=== PATIENT | male | born 2000 | race Caucasian/White ===

== ENCOUNTER 2022-09-26 12:00 | Emergency (ER) | payer BC, SELFPAY ==
--- NOTE | ~2022-09-26 | XR_ITS ---
EXAMINATION: XR NASAL BONES CLINICAL INFORMATION: Nasal bridge pain COMPARISON: None available. TECHNIQUE: 3 views of the nasal bones were obtained. FINDINGS: There are no fractures . 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 No bone or soft tissue abnormality is demonstrated. Paranasal sinuses are well aerated without air-fluid levels. A small retention cyst may be present at the base of the left maxillary antrum. XR/XR nasal bones min 3V IMPRESSION: No evidence of an acute fracture. 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
[2022-09-26 12:05] VITALS: BP 108/50; PULSE 66; RESP 18; TEMP 36.7; O2SAT 99; BMI 17.0
--- NOTE | 2022-09-26 12:11 | ED.GENADULT ---
HPI - General Adult General Chief complaint: General Medical Stated complaint: Nose Injury 09/26/22 Time Seen by Provider: 09/26/22 12:20 Source: patient and RN notes reviewed Mode of arrival: ambulatory Limitations: no limitations History of Present Illness HPI narrative: This is a 22-year-old male presenting to the emergency department with for evaluation of nose pain since today. Patient states that he had a wooden door hit him in the face approximately 20 minutes ago. He states that he immediately had a nosebleed which lasted for several minutes and resolved on its own. Patient denies loss of consciousness. No headache or visual changes. Patient states that he has fractured his nose in the past. He is able to breathe out of his nose No other complaints or concerns at this time. MD complaint: Nose pain Onset (ago): minute(s) Radiation: non-radiation Severity: mild Quality: aching Pain Consistency: constant Relieving factors: none Exacerbating factors: none Associated symptoms: denies other symptoms Treatments prior to arrival: none Related Data Allergies Allergy/AdvReac Type Severity Reaction Status Date / Time No Known Allergies Allergy Verified 09/26/22 12:13 Review of Systems Review of Systems: Constitutional: No Weight loss, No Fever, No Chills ENT/Mouth: No Ear Pain, No Nasal Congestion, No Sinus Pain, No Hoarseness, No sore throat, No Rhinorrhea, No Swallowing Difficulty Cardiovascular: No Chest Pain, No SOB Respiratory: No Cough, No Sputum, No Wheezing Gastrointestinal: No Nausea, No Vomiting, No Diarrhea, No Constipation, No Abdominal pain Genitourinary: No Dysuria, No Urinary Frequency, No Hematuria, No Urinary Incontinence/retention, No Urgency, No Flank Pain Musculoskeletal: No joint pain, No Myalgias, No Joint Swelling Skin: No Skin Lesions, No rash Neuro: No Weakness, No Numbness, No Paresthesias Yes all other systems are reviewed and are negative Constitutional: Constitutional: Reports as per [facility] Social History Social History Alcohol intake: never Smoked in Last 30 Days: No Use of substances other than those prescribed or required for medical reasons: No Advance Directives: No Advance Directives Information Provided: Yes Physical Exam ED Vital Signs: Vital Signs - 24 hr 09/26/22 12:05 Temperature 98.1 F Pulse Rate 66 Respiratory Rate 18 Blood Pressure 108/50 L Pulse Oximetry 99 Oxygen Delivery Method Room Air Nasal Cannula BMI result Body Mass Index 17.0 Const General: cooperative, comfortable and no acute distress Orientation/consciousness: patient oriented x3 Limitations: no limitations HENMT Other: obvious deformity to nasal bridge. TTP over the anterior surface of the bridge of the nose, no open wounds, abrasions or lacerations. No ecchymosis. Nasal turbinates without any hematoma noted, scant dry blood noted in bilateral nares. Head: Yes normal to inspection, Yes normocephalic and Yes atraumatic Ears: hearing grossly normal bilaterally Face and sinus: Yes normal facial exam and Yes sinuses nontender Mouth: Normal oral and palatal mucosa present, oropharynx normal and moist mucous membranes Throat: Yes posterior oropharynx normal Eyes General: appearance normal, both eyes and all related structures Eyelids: Yes eyelids normal Conjunctivae: conjunctivae normal Sclerae: sclerae normal Pupils: Equal, round and reactive pupils present EOM: EOMs intact bilaterally Neck Neck: Yes normal visual inspection, Yes full ROM and Yes no lymphadenopathy Lymphatic: no lymphadenopathy noted Chest Chest palpation & inspection: normal inspection of the chest Resp Effort & Inspection: normal respiratory effort and able to speak in complete sentences Cardio Rate: regular rate Rhythm: regular rhythm Skin General skin exam: no rashes or lesions noted Trauma: no lacerations or abrasions Wounds: no wounds Neuro General: patient oriented x3 and moves all extremities Cranial nerves: Yes Equal, round and reactive pupils present Extrem General: Yes normal to inspection Right upper extremity: normal to inspection Left upper extremity: normal to inspection Right lower extremity: normal to inspection Left lower extremity: normal to inspection Course Course Course Narrative: This is an RME: Additional HPI, ROS, PE not included below will be deferred to primary provider. This is a [id number] presenting to the ER for evaluation of nose injury which occurred this morning. Pt states that he opened a door which struck him in the nose. He had some epistaxis at that time, which has since resolved. VS stable. Reevaluation(s) Reevaluation #1: xrays revealing no evidence of an acute fracture. 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 Villela not seeing any acute fractures. Given treatment remains the same regardless if its fracture or not, patient needs to follow-up with ENT or maxillofacial providers. Patient given referrals to these providers. Advised to take Tylenol or Motrin as needed for pain. Patient is already on amoxicillin due to recent wisdom teeth removal. Will not add on any additional antibiotics for prophylaxis. Given return precautions. Patient understands and agrees with plan. Time: 15:05 Medical Decision Making Medical Decision Making MDM Narrative: 22-year-old male presenting to the emergency department for evaluation of nasal pain today. Patient states that overall the wooden door directly onto his face. On examination, obvious nasal deviation to the right. Nasal mattress filling machine tender to palpation. No septal hematoma noted. No active epistaxis. Vital signs stable. No LOC. No headache. Not on AC. Plan: XR nasal bones Differential Diagnosis Differential Diagnoses: The differential diagnosis associated with the presentation includes Nasal bone fracture, contusion, septal hematoma Admission/Observation Consideration of admission/observation: Escalation of care including admission/observation considered Radiology Impression Discussion of test interpretation with radiology: I have reviewed the radiologist's reading. Radiologist Impression: EXAMINATION: XR NASAL BONES CLINICAL INFORMATION: Nasal bridge pain COMPARISON: None available. TECHNIQUE: 3 views of the nasal bones were obtained.? FINDINGS: There are no fractures . 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 No bone or soft tissue abnormality is demonstrated. Paranasal sinuses are well aerated without air-fluid levels. A small retention cyst may be present at the base of the left maxillary antrum. XR/XR nasal bones min 3V IMPRESSION: No evidence of an acute fracture. 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 ? Dictated By: Harshil Villela MD External Record Review External record reviewed: Inpatient record, Office record, Outpatient record, Prior outpatient labs, Prior outpatient radiology, Primary care record and Outside ED record Discharge Plan Discharge Clinical Impression: Nasal pain Patient Disposition: Home, Self-Care Instructions: Nasal Fracture (ED) Additional Instructions: Please ice your nose to help reduce swelling. Follow up with the referred providers for further treatment and evaluation. Call today to make an appointment. Take ibuprofen or tylenol as needed for pain. If any new or worsening symptoms occur, please return for re-evaluation. [facility] [id number] [place] [id number]? tel:[phone] [facility], [facility].[address] [place] [address], [address], [place] [address] tel:[phone] Referrals: Kyler Souza [Physician] - Interventions: ED Discharge Assessment Last Done: 09/26/22 15:04 Discharge Date/Time: 09/26/22 15:07
--- NOTE | 2022-09-26 12:16 | PC.NURSE ---
eval and dc by PIT
== END 2022-09-26 15:07 | disposition home or self-care (01) ==
PROVIDERS: Emergency Provider Student in an Organized Health Care Education/Training Program
DX: J34.89 Other specified disorders of nose and nasal sinuses (principal); J34.2 Deviated nasal septum
CPT/HCPCS: 70160; 99283; 99284